=== PATIENT | female | born 1950 | race Caucasian/White ===

== ENCOUNTER → 2017-03-24 | Outpatient (CLI) | payer OTHER, MEDICARE | LOC: RAD 02:31 | DX: Z12.31 Encounter for screening mammogram for malignant neoplasm of breast (principal) ==

== ENCOUNTER → 2019-06-23 | Outpatient (CLI) | payer OTHER, MEDICARE ==
[~2019-06-23] MED LIST: B COMPLEX1 EACH PO; CITRACAL + D E1 EACH PO; CLONAZEPAM 0.50.5 M1 PO; CYTOMEL 5MCG TA5 MCG PO; ESTER-C 1,0001 EACH PO; LEVOTHYROXINE88 MCG PO; LISINOPRIL-HCT1 EAC2 PO; LOPRESSOR100 M1 PO; MEGARED OMEGA-1 EAC1 PO; METFORMIN HCL1000 MG PO; MIGRELIEF CAPL1 EACH PO; POTASSIUM CHLO10 MEQ PO; SIMVASTATIN40 MG PO; VITAMIN D31000 UNIT PO
== END ==
LOC: BC 08:29
DX: Z12.31 Encounter for screening mammogram for malignant neoplasm of breast (principal)

== ENCOUNTER → 2019-07-01 | Outpatient (CLI) | payer OTHER, MEDICARE ==
[~2019-07-01] VITALS: Ht 160 cm; Wt 58.5 kg
--- NOTE | 2019-07-02 14:40 | P ---
[facility] [place] [address] PROCEDURE REPORT Name: NAVA ARIAS Room #: REG [facility] M.R.#: [id number] Admission: 07/01/19 Attend Phys: Brian Luque MD Discharge: Date of : 50 Report #: [id number] THIS REPORT FOR: //name// CC: Brian Miranda [employer] OUTPATIENT COLONOSCOPY REPORT BRIEF HISTORY: The patient is a 68-year-old woman with a history of colon adenoma about 5-1/2 years ago. She is here for high risk screening colonoscopy. PREOPERATIVE DIAGNOSIS: High risk screening colonoscopy. POSTOPERATIVE DIAGNOSES: 1. Mild sigmoid diverticulosis coli. 2. Internal hemorrhoids. MEDICATIONS: Deep sedation with propofol per anesthesia. SPECIMEN: None. ESTIMATED BLOOD LOSS: None. PROCEDURE: Colonoscopy to cecum and ileocecal valve. FINDINGS: Prior to propofol sedation, procedure of colonoscopy discussed with the patient as well as potential risks and its complications. She indicates she understands and desires to proceed. DESCRIPTION OF PROCEDURE: With the patient in left lateral decubitus position, digital examination was completed, which revealed no abnormalities. Subsequently, the Olympus video colonoscope was introduced in the rectum, advanced under direct vision to the cecum. This was done with minimal difficulty. Cecum was identified by the ileocecal valve and the appendiceal orifice. I made several attempts to cross the ileocecal valve without success due to looping of the scope. The ileocecal valve itself was unremarkable. At that point, the scope was slowly withdrawn and careful circumferential views were obtained. Upon slow withdrawal of the scope, the prep was excellent. Mucosa was within normal limits, normal vascular pattern, normal light reflex. No mucosal abnormalities were seen. No polyps or neoplastic lesions were seen. In the distal colon, she was noted to have a few scattered diverticula without endoscopic evidence of diverticulitis. Scope was withdrawn in the rectum, no abnormalities were seen until retroflexion was completed and small internal hemorrhoids were seen. Scope was withdrawn. The patient tolerated the procedure well. [address] [address] PROCEDURE REPORT Name: NAVA ARIAS Room #: REG [facility].#: [id number] Admission: 07/01/19 Attend Phys: Brian Luque MD Discharge: Date of : 50 Report #: [id number] CONDITION OF THE PATIENT UPON DISCHARGE: Following procedure, the patient drowsy, aroused, conversant and will be discharged home when fully ambulatory. INSTRUCTIONS TO THE PATIENT AND FAMILY AT THE TIME OF DISCHARGE: I advised the patient to follow high fiber diet and fiber supplementation. She had a diminutive polyp removed 5 years ago. No polyps seen today. We will have her return in 10 years for her next colonoscopy. If she should develop specific symptoms, she should return sooner. <ELECTRONICALLY SIGNED> By: Brian Luque MD 07/02/19 [id number] Brian Luque MD /nt
== END | disposition home or self-care (01) ==
LOC: GI 08:31
DX: Z12.11 Encounter for screening for malignant neoplasm of colon (principal); Z86.010 Personal history of colon polyps; K57.30 Diverticulosis of large intestine without perforation or abscess without bleeding; K64.8 Other hemorrhoids; I10 Essential (primary) hypertension; E11.9 Type 2 diabetes mellitus without complications; Z90.49 Acquired absence of other specified parts of digestive tract; F41.9 Anxiety disorder, unspecified; Z98.51 Tubal ligation status; Z98.890 Other specified postprocedural states; Z79.899 Other long term (current) drug therapy; Z88.0 Allergy status to penicillin; Z88.2 Allergy status to sulfonamides
CPT/HCPCS: 62110; 62900

== ENCOUNTER → 2020-09-04 | Outpatient (CLI) | payer OTHER, MEDICARE | LOC: BC 09:40 | PROVIDERS: ATTEND Nurse Practitioner | DX: Z12.31 Encounter for screening mammogram for malignant neoplasm of breast (principal) ==

== ENCOUNTER → 2021-06-26 | Outpatient (CLI) | payer OTHER, MEDICARE | LOC: NUC 13:26 | PROVIDERS: ATTEND Nurse Practitioner | DX: M85.88 Other specified disorders of bone density and structure, other site (principal); T14.8XXA Other injury of unspecified body region, initial encounter; X58.XXXA Exposure to other specified factors, initial encounter; Y93.89 Activity, other specified; Y92.89 Other specified places as the place of occurrence of the external cause; Y99.8 Other external cause status; Z78.0 Asymptomatic menopausal state; Z87.81 Personal history of (healed) traumatic fracture ==

== ENCOUNTER → 2021-09-11 | Outpatient (CLI) | payer OTHER, MEDICARE | LOC: BC 09:34 | PROVIDERS: ATTEND Obstetrics & Gynecology | DX: Z12.31 Encounter for screening mammogram for malignant neoplasm of breast (principal); N64.89 Other specified disorders of breast ==